=== PATIENT | male | born 2000 | race Caucasian/White ===

== ENCOUNTER 2022-01-30 09:00 | Emergency (ER) | payer SELFPAY ==
[~2022-01-30] VITALS: Ht 167.6 cm; Wt 85.5 kg
[2022-01-30 09:02] VITALS: BP 157/99
--- NOTE | 2022-01-30 09:08 | NUR ---
PT AMB TO BED 12
[2022-01-30] MEDS ORDERED: LIDOCAINE 2% 1000 MG/50 ML VIAL INJ ONE (09:25)
[2022-01-30] MEDS ORDERED: cephALEXin 500 MG CAP PO ONE (09:25)
--- NOTE | 2022-01-30 09:29 | NUR ---
C/O LEFT HAND LAC WOUND S/P LOSS OF BALANCE & FALL X YESTERDAY. DENIES LOC. PT DRANK ALCOHOL YESTERDAY. PMH: DENIES
[2022-01-30] MEDS ORDERED: LIDOCAINE MPF 1% 0 ML ONE (09:36)
[2022-01-30] MEDS ORDERED: LIDOCAINE MPF 1% 10 MG/ML VIAL INJ ONE ×3 (09:40)
--- NOTE | 2022-01-30 10:26 | NUR ---
PT ELOPED FROM FACILITY, ERMD MADE AWARE.
== END 2022-01-30 10:26 | disposition left against medical advice (07) ==
LOC: MED 09:00
DX: S61.412A Laceration without foreign body of left hand, initial encounter (principal); W26.8XXA Contact with other sharp object(s), not elsewhere classified, initial encounter; Y93.89 Activity, other specified; Y92.89 Other specified places as the place of occurrence of the external cause; Y99.8 Other external cause status
CPT/HCPCS: 99283; J2001